=== PATIENT | male | born 2000 | race Hispanic/Latino ===

== ENCOUNTER 2023-07-09 12:00 | Emergency (ER) | payer SELFPAY ==
[2023-07-09] MEDS ORDERED: Acyclovir 200 MG Cap PO ONE (12:28)
[2023-07-09] MEDS ORDERED: Doxycycline 100 MG Cap PO ONE (12:28)
[2023-07-09] MEDS ORDERED: predniSONE 10 MG Tab PO ONE (12:28)
== END 2023-07-09 13:04 | disposition home or self-care (01) ==
LOC: MW.ED 12:00
DX: G51.0 Bell's palsy (principal); I10 Essential (primary) hypertension
CPT/HCPCS: 99283; A9270